=== PATIENT | female | born 1990 | race Caucasian/White ===

== ENCOUNTER 2016-07-13 23:00 | Emergency (ER) | payer OTHER ==
[2016-07-13 23:27] LABS: BASOPHILS 0.1 %; BASOPHILS ABSOLUTE 0.01 10/3/uL (0.0-0.16); EOSINOPHILS 0.1 %; EOSINOPHILS ABSOLUTE 0.01 10/3/uL (0.0-0.53); ER CBC TAT 0 Hrs 05 Mins; HEMATOCRIT 35.4 % (36.0-48.0); HEMOGLOBIN 12.3 g/dL (12.0-16.0); IMMATURE GRANULOCYTES 0.4 %; IMMATURE GRANULOCYTES ABSOLUTE 0.04 10/3/uL (0.0-0.11); LYMPHOCYTES 3.6 %; LYMPHOCYTES ABSOLUTE 0.41 10/3/uL (0.67-4.30); MANUAL DIFF NO %; MEAN CORPUS HGB CONC 34.7 g/dL (32.0-36.0); MEAN CORPUSCULAR HEMOGLOB 30.8 pg (26.0-34.0); MEAN CORPUSCULAR VOLUME 88.7 fL (80-100); MEAN PLATELET VOLUME 9.2 fL (9.2-13.0); MONOCYTES 5.2 %; MONOCYTES ABSOLUTE 0.59 10/3/uL (0.21-1.20); NEUTROPHILS 90.6 %; NEUTROPHILS ABSOLUTE 10.35 10/3/uL (2.02-8.40); PLATELET COUNT 243 10/3/uL (150-400); RBC DISTRIBUTION WIDTH 12.9 % (12.0-16.0); RED CELL COUNT 3.99 10/6/uL (4.0-5.6); WHITE BLOOD CELLS 11.4 10/3/uL (4.5-10.5)
[2016-07-13 23:43] LABS: A/G RATIO 1.1 (0.7-1.9); ALBUMIN 3.2 G/DL (3.5-5.0); ALKALINE PHOSPHATASE 47 U/L (45-117); BUN (BLOOD UREA NITROGEN) 10 MG/DL (6-23); CALCIUM, SERUM 7.9 MG/DL (8.5-10.4); CHLORIDE, SERUM 106 MMOL/L (96-112); CO2 (CARBON DIOXIDE) 23 MMOL/L (24-34); CREATININE 0.71 MG/DL (0.55-1.02); GFR AFRICAN AMERICAN 139 ML/MIN (>=60); GFR NON AFRICAN AMERICAN 120 ML/MIN (>=60); GLOBULIN 2.8 G/DL (2.5-4.1); GLUCOSE, SERUM 115 MG/DL (60-99); POTASSIUM, SERUM 3.7 MMOL/L (3.5-5.3); SGOT(AST) 14 U/L (5-40); SGPT(ALT) 19 U/L (5-65); SODIUM, SERUM 140 MMOL/L (135-148); TOTAL BILIRUBIN 1.1 MG/DL (0-1.2)
[2016-07-13 23:47] LABS: BAND NEUTROPHILS 8 %; EOSINOPHILS 1 %; EOSINOPHILS ABSOLUTE (CALC) 0.11 10/3/uL (0.0-0.53); ER DIFF TAT 0 Hrs 25 Mins; LYMPHOCYTES 3 %; LYMPHOCYTES ABSOLUTE (CALC) 0.34 10/3/uL (0.67-4.30); MONOCYTES 2 %; MONOCYTES ABSOLUTE (CALC) 0.23 10/3/uL (0.21-1.20); NEUTROPHILS ABSOLUTE (CALC) 10.72 10/3/uL (2.02-8.40); PLATELET ESTIMATE ADQ (ADEQUATE); RBC MORPHOLOGY NORM (NORMAL); SEGMENTED NEUTROPHIL (0) 86 %; TOTAL NUCLEATED CELLS 100
[2016-07-14 00:32] LABS: ASCORBIC ACID (UR NOT ORDER) NEG (NEG); BILIRUBIN, URINE NEGATIVE (NEG); ER URINALYSIS TAT 0 Hrs 00 Mins; KETONE, URINE 20 MG/DL (NEG); LEUKOCYTE ESTERASE(NOT OR NEG (NEG); NITRITE (URINE) NEG (NEG); WBC (NOT ORDERED) (RFLEX) 1 (0-5)
[2016-07-14] MEDS ORDERED: HUMIRA PEN SC (04:38)
[2016-07-14] MEDS ORDERED: VITAMIN D2000 UNIT PO (23:52)
[2016-07-14] MEDS ORDERED: CALTRAT600 PO (23:53)
[2016-07-14] MEDS ORDERED: VITAMIN B PO (23:54)
[2016-07-14] MEDS ORDERED: ULTRAM50 PO (23:58)
[2016-07-14] MEDS ORDERED: P20 PO (23:59)
== END 2016-07-14 08:02 | disposition home or self-care (01) ==
LOC: ER 23:00
PROVIDERS: Emergency Medicine
DX: K50.90 Crohn's disease, unspecified, without complications (principal)
CPT/HCPCS: 80053; 81001; 83690; 84703; 85025; 96374; 99284; J2405; J2930

== ENCOUNTER 2016-07-14 22:14 | Inpatient (IN) | payer OTHER ==
--- NOTE | ~2016-07-14 | DS ---
Discharge Summary [address] [id number] [place]. [address] NAME: TOMMY FIGUEROA : [birth year] STATUS : DIS IN PAT#: [id number] AGE: 25 ADM/REG DATE : 07/15/16 MR#: [id number] REPORT SERV DATE: 07/18/16 DICTATED BY: SIRISHA CLAROS DATE: 07/17/16 REPORT STATUS : Draft TRANSCRIBED BY: MODL DATE: 07/17/16 ADMISSION DATE: 07/15/2016 DISCHARGE DATE: 07/17/2016 DISCHARGE DIAGNOSES: 1. Gastrointestinal bleed secondary to small bowel Crohn's disease site bleeding. 2. Small bowel Crohn's disease, on Humira treatment. 3. Anemia of acute blood loss, status post one unit transfusion. CONSULTATIONS: GI. HISTORY OF PRESENT ILLNESS: This is a 25-year-old female patient, who has had Crohn's disease, on active treatment with Dr. Antonio with Humira, came to the hospital with GI bleed symptoms. Please see dictated H and P. HOSPITAL COURSE: She was admitted to the hospital with GI bleed, had upper and lower scope. Upper endoscopy and lower colonoscopy were completely normal. She also has small bowel Crohn's disease and suspected to have small bowel Crohn's disease site bleeding. She was put on empiric steroid high dose treatment. Bleeding has stopped after the colonoscopy and her H and H has been stable. MRI with enterography was done and showed a small bowel stenotic area. Stoddard contacted Dr. Antonio and he plans to increase this patient's Humira treatment to weekly from every other week and meanwhile, put her on the tapering dose of steroid. The patient is tolerating GI soft diet. Informed about the plan of care and they voiced understanding. The patient's family, parents, were informed on the phone. DISCHARGE MEDICATIONS: Tapering dose of prednisone from 40 mg down to 10 every week. DISPOSITION: The patient is discharged to home and will follow up with Dr. Antonio next week for Humira treatment. TIME SPENT: More than 30 minutes. EKL/MODL Sirisha Claros M.D. / [id number] CC: Sirisha Claros M.D.
--- NOTE | ~2016-07-14 | EGD ---
EGD REPORT [facility] [address] [address] NAME: TOMMY DEMARCO : [birth year] STATUS : ADM IN PAT#: [id number] AGE: 25 ADM/REG DATE : 07/15/16 MR#: [id number] REPORT SERV DATE: 07/15/16 DICTATED BY: NED ATKINS DATE: 07/15/16 REPORT STATUS : Draft TRANSCRIBED BY: [facility] DATE: 07/15/16 Endoscopy Center Patient Name: Tommy Demarco Date of : 1990 Attending MD: NED ATKINS MD Procedure Date No Time: 07/15/2016 Procedure: Upper GI endoscopy Indications: Acute post hemorrhagic anemia, Melena, Suspected upper gastrointestinal bleeding Referring MD: NICOL CASTRO MD Medicines: Monitored Anesthesia Care Complications: No immediate complications. Estimated blood loss: None. Procedure: After obtaining informed consent, the endoscope was passed under direct vision. Throughout the procedure, the patient's blood pressure, pulse, and oxygen saturations were monitored continuously. The GIF [id number] was introduced through the mouth, and advanced to the second part of duodenum. The upper GI endoscopy was accomplished without difficulty. The patient tolerated the procedure well. Findings: The examined esophagus was normal. The stomach was normal. The examined duodenum was normal. The cardia and gastric fundus were normal on retroflexion. Impression: - Normal examination. - A bleeding source was not identified. Recommendation: - Return patient to [facility] for ongoing care. - Clear liquid diet today. - Check hemoglobin q 8 hours until stable. - Perform a colonoscopy tomorrow. Procedure Code(s): --- Professional --- 72401, Esophagogastroduodenoscopy, flexible, transoral; diagnostic, including collection of specimen(s) by brushing or washing, when performed (separate procedure) Diagnosis Code(s): --- Professional --- K92.2, Gastrointestinal hemorrhage, unspecified D62, Acute posthemorrhagic anemia K92.1, Melena EGD REPORT [facility] [address] [place] [address] [place]. [address] NAME: TOMMY DEMARCO : [birth year] STATUS : ADM IN [facility]#: [id number] AGE: 25 ADM/REG DATE : 07/15/16 MR#: [id number] REPORT SERV DATE: 07/15/16 DICTATED BY: NED ATKINS DATE: 07/15/16 REPORT STATUS : Draft TRANSCRIBED BY: [facility] DATE: 07/15/16 CPT copyright 2013 [employer]. All rights reserved. The codes documented in this report are preliminary and upon utility agent review may be revised to meet current compliance requirements. Ned Atkins MD NED ATKINS MD 07/15/2016 9:51 AM This report has been signed electronically. Number of Addenda: 0 Note Initiated On: 07/15/2016 9:27 AM Scope Withdrawal Time 0 hours 0 minutes [address] [place], [place] [address] [address]
--- NOTE | ~2016-07-14 | HP ---
History And Physical [address] [place]. [address] NAME: TOMYM DEMARCO : [birth year] STATUS : ADM IN [facility]#: [id number] AGE: 25 ADM/REG DATE : 07/15/16 MR#: [id number] REPORT SERV DATE: 07/15/16 DICTATED BY: JUDSON HANSON DATE: 07/15/16 REPORT STATUS : Draft TRANSCRIBED BY: MODL DATE: 07/15/16 DATE OF ADMISSION: 07/15/2016 CHIEF COMPLAINT: Passing black tarry stools, abdominal pain. HISTORY OF PRESENT ILLNESS: This is a 25-year-old female, who has Crohn disease, followed by Dr. Antonio, who presents to the emergency room at [facility] with the above-mentioned complaint. History is obtained from the patient, reviewing data available on the [employer] system as well. According to Ms. Demarco, she was in her usual state of health until about four days ago, when she started experiencing severe abdominal pain. Initially, it was in the lower part of her abdomen and she had constipation at that time, but with nausea and vomiting. She went to the emergency room at [facility] two days ago, where they had done a CT of the abdomen and pelvis and she was told she had a flare-up of her Crohn disease. She was discharged home on steroids. She then did not get better and came to the emergency room here to be evaluated yesterday. The patient in the emergency room felt better and decided to leave. Unfortunately today, she started having epigastric pain as well and started seeing black tarry stools. She decided to come back to the emergency room today. In the emergency room, initial workup revealed acute gastrointestinal bleeding, anemia secondary to the gastrointestinal bleed, where her hemoglobin and hematocrit had dropped from 12.3 and 35.4 yesterday to 9.3 and 26.7 today. The ER provider had called Dr. Antonio's office, spoke with Dr. Carson, who was environmental project manager and it was decided to admit the patient to the Hospitalist Service, and they will consult in the morning. In fact, they would possibly scope her in the morning. At the time of my evaluation, she denied any chest pain, palpitations, or orthopnea. She had no cough, hemoptysis, night sweats, or weight loss. She has not had any falls or loss of consciousness. No history of recent fevers or chills. She did have nausea, vomiting, and diarrhea as mentioned above. She had melanotic stools as well. She denied any hematemesis or hematuria. No other history of recent travel or exposures other than those mentioned above. PAST MEDICAL HISTORY: Significant for history of Crohn disease, on Humira. SOCIAL HISTORY: She does not smoke, drinks occasionally, does not use any recreational drugs. 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 FAMILY HISTORY: Noncontributory. MEDICATIONS AT HOME: Reviewed by me in the chart today and reordered by me. REVIEW OF SYSTEMS: As in history of present illness. All other systems were reviewed in detail and are quite unremarkable. History And Physical [address] [place]. [address] NAME: TOMMY DEMARCO : [birth year] STATUS : ADM IN [facility]#: [id number] AGE: 25 ADM/REG DATE : 07/15/16 MR#: [id number] REPORT SERV DATE: 07/15/16 DICTATED BY: JUDSON HANSON DATE: 07/15/16 REPORT STATUS : Draft TRANSCRIBED BY: PRIYANK DATE: 07/15/16 PHYSICAL EXAMINATION: GENERAL: This is a pleasant 25-year-old, not in any acute distress. HEENT: Head is atraumatic, normocephalic. She is alert, awake, oriented to time, place, and person. Pupils are equal, reacting to light and accommodating. External ocular muscles are intact. Membranes are moist and pink. Sclerae are nonicteric. NECK: Supple with no jugular venous distention, lymphadenopathy, or thyromegaly. LUNGS: Clear to auscultation with no wheezes, rubs, or crackles. HEART: Sounds were regular with no murmurs, rubs, or gallops. ABDOMEN: Tender in the epigastric region, otherwise without any guarding, rigidity, or rebound tenderness. Bowel sounds were present. There was no organomegaly. EXTREMITIES: Showed no cyanosis, clubbing, or edema. NEUROLOGIC: Grossly intact. No focal sensory or motor deficits. Higher functions appeared intact. She was able to move all four extremities. VITAL SIGNS: Her temperature today was 99.2, pulse 94, respirations 18 a minute, blood pressure was 119/74, and oxygen saturations were 97% on room air. LABORATORY DATA: Reviewed on the [employer] system showed a normal CMP with a glucose of 139. CBC showed a white blood cell count of 11,000, hemoglobin was 9.3, hematocrit 26.7, platelet count was 263,000. Urinalysis was grossly unremarkable. No imaging was performed in the ER today. IMPRESSION: 1. Abdominal pain. 2. Acute gastrointestinal bleeding. 3. Anemia secondary to gastrointestinal bleed. 4. Crohn disease with acute exacerbation. PLAN: We will admit Ms. Demarco to the Hospitalist Service to a telemetry bed. We will obtain hemoglobin and hematocrit levels every six hours. Type and cross and transfuse as needed. We will also keep her on strict bedrest, keep her n.p.o., start her on IV fluids for volume resuscitation and go ahead and consult Dr. Antonio to see her in the morning. We will let Dr. Antonio know if she were to have a massive bleed tonight. Meanwhile, we will provide pain control intravenously, start her on a Protonix infusion and IV steroids as well. She will be on SCDs for DVT prophylaxis while she is here. We will also get records from [place], including films of the CT of the abdomen and pelvis. I have discussed the above plans with the patient. Her questions were answered and she is agreeable to the above recommendations. Hospitalist Service will be following her during her stay here. Further recommendations will follow after the GI subspecialist has had a chance to see her. /PRIYANK Judson Hanson M.D. History And Physical [address] [address] NAME: TOMMY DEMARCO : [birth year] STATUS : ADM IN [facility]#: [id number] AGE: 25 ADM/REG DATE : 07/15/16 MR#: [id number] REPORT SERV DATE: 07/15/16 DICTATED BY: JUDSON HANSON DATE: 07/15/16 REPORT STATUS : Draft TRANSCRIBED BY: PRIYANK DATE: 07/15/16 / [id number] CC: Solomon Burt MD
--- NOTE | ~2016-07-14 | EGD ---
EGD REPORT [facility] [address] [address] NAME: TOMMY DEMARCO : [birth year] STATUS : ADM IN PAT#: [id number] AGE: 25 ADM/REG DATE : 07/15/16 MR#: [id number] REPORT SERV DATE: 07/16/16 DICTATED BY: NED ATKINS DATE: 07/16/16 REPORT STATUS : Draft TRANSCRIBED BY: [facility] DATE: 07/16/16 Endoscopy Center Patient Name: Tommy Demarco Date of : 1990 Attending MD: NED ATKINS MD Procedure Date No Time: 07/16/2016 Procedure: Colonoscopy Indications: Hematochezia, Melena Medicines: Monitored Anesthesia Care Complications: No immediate complications. Estimated blood loss: Minimal. Procedure: Pre-Anesthesia Assessment: - ASA Grade Assessment: II - A patient with mild systemic disease. After I obtained informed consent, the scope was passed under direct vision. Throughout the procedure, the patient's blood pressure, pulse, and oxygen saturations were monitored continuously. The CF [id number] was introduced through the anus and advanced to 50 cm into the ileum. The colonoscopy was performed without difficulty. The patient tolerated the procedure well. The quality of the bowel preparation was good. Findings: The perianal and digital rectal examinations were normal. Pertinent negatives include normal sphincter tone and no palpable rectal lesions. A few small-mouthed diverticula were found in the sigmoid colon and in the ascending colon. Normal mucosa was found in the entire colon. The terminal ileum appeared normal from the IC valve to approximately 50 cm distally. The retroflexed view of the distal rectum and anal verge was normal and showed no anal or rectal abnormalities. Impression: - No suggestion of blood or recent bleeding on the entire examination - Diverticulosis in the sigmoid colon and in the ascending colon. - Normal mucosa in the entire examined colon. - The examined portion of the ileum was normal. - The distal rectum and anal verge are normal on retroflexion view. Recommendation: - Return patient to hospital [facility] for ongoing care. - Perform magnetic resonance imaging (MRI) with EGD REPORT [address] [address] NAME: TOMMY DEMARCO : [birth year] STATUS : ADM IN [facility]#: [id number] AGE: 25 ADM/REG DATE : 07/15/16 MR#: [id number] REPORT SERV DATE: 07/16/16 DICTATED BY: NED ATKINS DATE: 07/16/16 REPORT STATUS : Draft TRANSCRIBED BY: [email or web address] DATE: 07/16/16 gadolinium today. Procedure Code(s): --- Professional --- 57845, Colonoscopy, flexible, proximal to splenic flexure; diagnostic, with or without collection of specimen(s) by brushing or washing, with or without colon decompression (separate procedure) Diagnosis Code(s): --- Professional --- K57.30, Diverticulosis of large intestine without perforation or abscess without bleeding K92.1, Melena CPT copyright 2013 [employer]. All rights reserved. The codes documented in this report are preliminary and upon braille coder review may be revised to meet current compliance requirements. Ned Atkins MD NED ATKINS MD 07/16/2016 8:51 AM This report has been signed electronically. Number of Addenda: 0 Note Initiated On: 07/16/2016 8:06 AM Scope Withdrawal Time 0 hours 10 minutes 52 seconds [address] [id number]
--- NOTE | ~2016-07-14 | CN ---
Consultation Report [facility] [address] [place]. [address] NAME: TOMMY DEMARCO : [birth year] STATUS : ADM IN PAT#: [id number] AGE: 25 ADM/REG DATE : 07/15/16 MR#: [id number] REPORT SERV DATE: 07/15/16 DICTATED BY: DALIA PERERA DATE: 07/15/16 REPORT STATUS : Draft TRANSCRIBED BY: MODTeresa DATE: 07/15/16 GI CONSULTATION DATE OF CONSULTATION: 07/15/2016 REASON FOR CONSULTATION: Evaluation and management of GI bleeding and dark tarry stools. HISTORY OF PRESENT ILLNESS: Ms. Demarco is a pleasant 25-year-old female patient, known to Dr. Antonio in the outpatient setting, who presented to [facility] on 07/15/2016 with a chief complaint of abdominal pain with black tarry stools. She has a history of Crohn's, primarily small bowel, per her report that she was diagnosed in 2004 with. 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 She states that she was in her typical state of health up until last week when on she began to have some epigastric periumbilical lower abdominal discomfort. She said this progressively worsened. She went to the emergency room at [place] on Friday. She said she had a CT scan which was essentially negative. She was given prednisone and pain medications on Friday. She said she had the worse abdominal pain that she has ever experienced with her Crohn disease. She came to [facility] that evening for further evaluation. Her hemoglobin on that visit was 12.3. After pain medication and IV fluids, she felt better and was subsequently discharged. Her pain recurred. She called Dr. Carson who was on-call for the weekend for Dr. Antonio, who directed her back to [facility]. She was subsequently admitted. Her hemoglobin on that day had dropped from 12.3 to 9.3, and presently, her hemoglobin is 7.0. She is receiving a unit of packed red blood cells. She states that her pain is gone at this point in time. She states that with this, she has had nausea and vomiting, but she did not vomit any coffee-grounds, no isabel blood. She states that her stools are more black and tarry and maroon, no fresh blood has been passed. Her last colonoscopy with Dr. Antonio was on 04/04/2016. Normal terminal ileum was found as well as normal colon. She has been on Humira regimen every other week since 2008. She states that she passed blood at about 6:20 this morning, that is the last time that she has passed any. I have discussed with her that we will potentially start with an EGD today. I did discuss risks, benefits, alternatives, and complications with her to include but not limited to risk of bleeding, perforation, infection, reaction to medications as well as cardiac and pulmonary side effects. She is agreeable to proceed. PAST MEDICAL HISTORY: Positive for Crohn's, primarily small bowel, on regimen of Humira every other week as well as asthma. 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 She does not use any tobacco. She socially drinks. Does not use any illicit drugs. FAMILY HISTORY: Noncontributory from a GI standpoint. SURGICAL HISTORY: She denies. Consultation Report [address] [place]. [address] NAME: TOMMY DEMARCO : [birth year] STATUS : ADM IN [facility]#: [id number] AGE: 25 ADM/REG DATE : 07/15/16 MR#: [id number] REPORT SERV DATE: 07/15/16 DICTATED BY: DALIA PERERA DATE: 07/15/16 REPORT STATUS : Draft TRANSCRIBED BY: PRIYANK DATE: 07/15/16 ALLERGIES: SHE HAS NONE. HOME MEDICATIONS: Humira, Caltrate, vitamin D, prednisone, Ultram, and vitamin B. REVIEW OF SYSTEMS: A 10-point review of systems has been obtained with pertinent positives being addressed in the history of present illness. PHYSICAL EXAMINATION: VITAL SIGNS: Temperature is 98.8, pulse is 76, respirations 18, and blood pressure 123/55. GENERAL: Reveals an alert, thin female resting in bed, no focal deficits. Cooperative, in no apparent distress. Awake, alert, and oriented x3. HEAD, EARS, EYES, NOSE, AND THROAT: Anicteric. Pupils are equal, round, and reactive to light and accommodation. Normocephalic and atraumatic. NECK: No JVD. No palpable nodes. LUNGS: Clear anteriorly with normal respiratory effort exhibited. Equal expansion. CARDIOVASCULAR SYSTEM: Regular rate and rhythm. S1 and S2. No murmurs, rubs, gallops, S3, or S4 appreciated. ABDOMEN: Soft and flat. Nondistended. Very minimal tenderness to palpation to the lower abdomen as well as periumbilical area. She has no rebound, guarding, or organomegaly appreciated on exam. She has active bowel sounds in all four quadrants. EXTREMITIES: No edema. Normal distal pulses. SKIN: Warm, dry, and intact. PERTINENT LABORATORY DATA: Sodium 143, potassium 4.4, BUN is 14, and creatinine 0.6. White count 7.5, hemoglobin 7.0, hematocrit 20.4, and platelet count 192. ASSESSMENT: 1. Abdominal pain with nausea and vomiting. 2. Melena. 3. Crohn's of the small bowel primarily, on a regimen of Humira. 4. Acute blood loss anemia. PLAN: 1. Transfuse. 2. Check stool studies. 3. EGD today. 4. Continue PPI. 5. Trend hemoglobin and hematocrit. 6. Other recommendations to follow endoscopy. DG/MODL Consultation Report [address] [id number] [facility]. [address] NAME: TOMMY DEMARCO : [birth year] STATUS : ADM IN [facility]#: [id number] AGE: 25 ADM/REG DATE : 07/15/16 MR#: [id number] REPORT SERV DATE: 07/15/16 DICTATED BY: DALIA PERERA DATE: 07/15/16 REPORT STATUS : Draft TRANSCRIBED BY: PRIYANK DATE: 07/15/16 ARIN Aranda / [id number] CC: Solomon Burt MD
[~2016-07-14 22:14] MED LIST: HUMIRA PEN SC
[2016-07-14 22:54] LABS: BASOPHILS 0.1 %; BASOPHILS ABSOLUTE 0.01 10/3/uL (0.0-0.16); EOSINOPHILS 0 %; ER CBC TAT 0 Hrs 07 Mins; IMMATURE GRANULOCYTES 0.2 %; IMMATURE GRANULOCYTES ABSOLUTE 0.02 10/3/uL (0.0-0.11); LYMPHOCYTES 7.2 %; LYMPHOCYTES ABSOLUTE 0.79 10/3/uL (0.67-4.30); MEAN CORPUS HGB CONC 34.8 g/dL (32.0-36.0); MEAN CORPUSCULAR HEMOGLOB 30.6 pg (26.0-34.0); MEAN CORPUSCULAR VOLUME 87.8 fL (80-100); MEAN PLATELET VOLUME 9.3 fL (9.2-13.0); MONOCYTES ABSOLUTE 0.77 10/3/uL (0.21-1.20); NEUTROPHILS 85.5 %; NEUTROPHILS ABSOLUTE 9.43 10/3/uL (2.02-8.40); PLATELET COUNT 263 10/3/uL (150-400); RBC DISTRIBUTION WIDTH 13.2 % (12.0-16.0)
[2016-07-14 22:55] LABS: ASCORBIC ACID (UR NOT ORDER) NEG (NEG); BILIRUBIN, URINE NEGATIVE (NEG); ER URINALYSIS TAT 0 Hrs 08 Mins; KETONE, URINE 20 MG/DL (NEG); NITRITE (URINE) NEG (NEG); WBC (NOT ORDERED) (RFLEX) 3 (0-5)
[2016-07-14 22:55] LABS: HEMATOCRIT 26.7 % (36.0-48.0); HEMOGLOBIN 9.3 g/dL (12.0-16.0); MANUAL DIFF NO %; RED CELL COUNT 3.04 10/6/uL (4.0-5.6)
[2016-07-14 22:57] LABS: LEUKOCYTE ESTERASE(NOT OR TRACE (NEG)
[2016-07-14 23:09] LABS: ALBUMIN 2.8 G/DL (3.5-5.0); ALKALINE PHOSPHATASE 40 U/L (45-117); BUN (BLOOD UREA NITROGEN) 16 MG/DL (6-23); CALCIUM, SERUM 7.8 MG/DL (8.5-10.4); CHLORIDE, SERUM 107 MMOL/L (96-112); CO2 (CARBON DIOXIDE) 24 MMOL/L (24-34); CREATININE 0.85 MG/DL (0.55-1.02); GFR AFRICAN AMERICAN 112 ML/MIN (>=60); GFR NON AFRICAN AMERICAN 97 ML/MIN (>=60); GLOBULIN 2.9 G/DL (2.5-4.1); GLUCOSE, SERUM 139 MG/DL (60-99); SGOT(AST) 10 U/L (5-40); SGPT(ALT) 14 U/L (5-65); SODIUM, SERUM 141 MMOL/L (135-148); TOTAL BILIRUBIN 0.5 MG/DL (0-1.2); TOTAL PROTEIN 5.7 G/DL (6.0-8.5)
[2016-07-14] MEDS ORDERED: VITAMIN D2000 UNIT PO (23:52)
[2016-07-14] MEDS ORDERED: CALTRAT600 PO (23:53)
[2016-07-14] MEDS ORDERED: VITAMIN B PO (23:54)
[2016-07-14] MEDS ORDERED: ULTRAM50 PO (23:58)
[2016-07-14] MEDS ORDERED: P20 PO (23:59)
[2016-07-15 05:18] LABS: BUN (BLOOD UREA NITROGEN) 14 MG/DL (6-23); CALCIUM, SERUM 7.1 MG/DL (8.5-10.4); CHLORIDE, SERUM 111 MMOL/L (96-112); CO2 (CARBON DIOXIDE) 24 MMOL/L (24-34); GFR AFRICAN AMERICAN 149 ML/MIN (>=60); GFR NON AFRICAN AMERICAN 128 ML/MIN (>=60); GLUCOSE, SERUM 120 MG/DL (60-99); PHOSPHORUS, SERUM 2.7 MG/DL (2.5-4.5); POTASSIUM, SERUM 4.4 MMOL/L (3.5-5.3); SODIUM, SERUM 143 MMOL/L (135-148)
[2016-07-15 05:35] LABS: BASOPHILS 0 %; EOSINOPHILS 0 %; IMMATURE GRANULOCYTES 0.3 %; IMMATURE GRANULOCYTES ABSOLUTE 0.02 10/3/uL (0.0-0.11); LYMPHOCYTES 9.8 %; LYMPHOCYTES ABSOLUTE 0.73 10/3/uL (0.67-4.30); MEAN CORPUS HGB CONC 34.3 g/dL (32.0-36.0); MEAN CORPUSCULAR HEMOGLOB 30.3 pg (26.0-34.0); MEAN CORPUSCULAR VOLUME 88.3 fL (80-100); MEAN PLATELET VOLUME 9.1 fL (9.2-13.0); MONOCYTES 7.9 %; MONOCYTES ABSOLUTE 0.59 10/3/uL (0.21-1.20); NEUTROPHILS ABSOLUTE 6.14 10/3/uL (2.02-8.40); PLATELET COUNT 192 10/3/uL (150-400); RBC DISTRIBUTION WIDTH 13.4 % (12.0-16.0); WHITE BLOOD CELLS 7.5 10/3/uL (4.5-10.5)
[2016-07-15 05:40] LABS: HEMATOCRIT 20.4 % (36.0-48.0); RED CELL COUNT 2.31 10/6/uL (4.0-5.6)
[2016-07-15 05:41] LABS: MANUAL DIFF NO %
[2016-07-15 11:38] LABS: HEMATOCRIT 26.3 % (36.0-48.0); HEMOGLOBIN 9.2 g/dL (12.0-16.0)
[2016-07-15 19:31] LABS: HEMATOCRIT 24.4 % (36.0-48.0); HEMOGLOBIN 8.6 g/dL (12.0-16.0)
[2016-07-16 05:24] LABS: HEMATOCRIT 24.5 % (36.0-48.0); HEMOGLOBIN 8.3 g/dL (12.0-16.0)
[2016-07-16 05:28] LABS: BASOPHILS 0 %; EOSINOPHILS 0 %; HEMATOCRIT 24.2 % (36.0-48.0); HEMOGLOBIN 8.3 g/dL (12.0-16.0); IMMATURE GRANULOCYTES 0.3 %; IMMATURE GRANULOCYTES ABSOLUTE 0.02 10/3/uL (0.0-0.11); LYMPHOCYTES 9.7 %; LYMPHOCYTES ABSOLUTE 0.58 10/3/uL (0.67-4.30); MEAN CORPUS HGB CONC 34.3 g/dL (32.0-36.0); MEAN CORPUSCULAR HEMOGLOB 29.7 pg (26.0-34.0); MEAN CORPUSCULAR VOLUME 86.7 fL (80-100); MEAN PLATELET VOLUME 9.9 fL (9.2-13.0); MONOCYTES 5.2 %; MONOCYTES ABSOLUTE 0.31 10/3/uL (0.21-1.20); NEUTROPHILS 84.8 %; NEUTROPHILS ABSOLUTE 5.06 10/3/uL (2.02-8.40); PLATELET COUNT 173 10/3/uL (150-400); RBC DISTRIBUTION WIDTH 14.3 % (12.0-16.0)
[2016-07-16 05:29] LABS: MANUAL DIFF NO %; RED CELL COUNT 2.79 10/6/uL (4.0-5.6)
[2016-07-16 05:38] LABS: BUN (BLOOD UREA NITROGEN) 11 MG/DL (6-23); CALCIUM, SERUM 7.3 MG/DL (8.5-10.4); CHLORIDE, SERUM 111 MMOL/L (96-112); CO2 (CARBON DIOXIDE) 27 MMOL/L (24-34); CREATININE 0.51 MG/DL (0.55-1.02); GFR AFRICAN AMERICAN 157 ML/MIN (>=60); GFR NON AFRICAN AMERICAN 136 ML/MIN (>=60); GLUCOSE, SERUM 140 MG/DL (60-99); SODIUM, SERUM 146 MMOL/L (135-148)
[2016-07-16 06:02] LABS: POTASSIUM, SERUM 3.5 MMOL/L (3.5-5.3)
[2016-07-16 12:35] LABS: HEMOGLOBIN 8.8 g/dL (12.0-16.0)
[2016-07-16 20:26] LABS: HEMOGLOBIN 8.9 g/dL (12.0-16.0)
[2016-07-17 05:05] LABS: HEMATOCRIT 26.4 % (36.0-48.0)
== END 2016-07-17 18:00 | disposition home or self-care (01) | DRG 386 ==
LOC: ER 22:14 → 2SO 07-15 00:32
PROVIDERS: Hospitalist; Internal Medicine Gastroenterology; Nurse Practitioner; Specialist
PROC: 30233N1 Transfusion of Nonautologous Red Blood Cells into Peripheral Vein, Percutaneous Approach (ICD-10-PCS; 2016-07-15)
PROC: 0DJ08ZZ Inspection of Upper Intestinal Tract, Via Natural or Artificial Opening Endoscopic (ICD-10-PCS; principal; 2016-07-15 09:37)
PROC: 0DJD8ZZ Inspection of Lower Intestinal Tract, Via Natural or Artificial Opening Endoscopic (ICD-10-PCS; 2016-07-16)
DX: K50.10 Crohn's disease of large intestine without complications (principal); D62 Acute posthemorrhagic anemia; D50.9 Iron deficiency anemia, unspecified; K57.30 Diverticulosis of large intestine without perforation or abscess without bleeding; K64.9 Unspecified hemorrhoids
CPT/HCPCS: 36415; 80048; 80053; 81001; 83690; 83735; 84100; 84703; 85014; 85018; 85025; 86850; 86900; 86901; 86920; 93005; 96365; 96375; 99285; A9270-GY; A9577; C8902; C9113; J1610; J2405; J2930; J3010; P9016